=== PATIENT | female | born 2000 | race Caucasian/White ===

== ENCOUNTER 2021-01-28 22:01 | Emergency (ER) | payer BC, OTHER ==
[2021-01-29] MEDS ORDERED: KETOROLAC 30 MG/ML INJ ONE (01:17)
--- NOTE | 2021-01-29 08:05 | RAD REPORT ---
EXAM DESCRIPTION: RAD - Ankle Right 3 View - 01/28/2021 11:55 pm CLINICAL HISTORY: Right ankle pain FINDINGS: No fracture or dislocation is seen.
--- NOTE | 2021-01-29 08:06 | RAD REPORT ---
EXAM DESCRIPTION: RAD - Knee Right 3 View - 01/28/2021 11:55 pm CLINICAL HISTORY: Right knee pain status post injury FINDINGS: No fracture or dislocation is seen.
--- NOTE | 2021-01-29 11:09 | RAD REPORT ---
EXAM DESCRIPTION: CT - Head C Spine Mpr Wo Con - 01/29/2021 6:31 am CLINICAL HISTORY: The patient is 20 years old and is Female; fall with head injury TECHNIQUE: Axial computed tomography images of the head/brain and cervical spine without intravenous contrast. Sagittal and coronal reformatted images were created and reviewed. This CT exam was pe rformed using one or more of the following dose reduction techniques: automated exposure control, a djustment of the mA and/or kV according to patient size, and/or use of iterative reconstruction techn ique. DLP: 1195 mGy*cm COMPARISON: None. FINDINGS: BRAIN: Unremarkable. No hemorrhage. No significant white matter disease. No edema . VENTRICLES: Unremarkable. No ventriculomegaly. SKULL: No acute fracture. SINUSES: Unremarkable as visualized. No acute sinusitis. MASTOID AIR CELLS: Unremarkable as visualized. No mastoid effusion. VERTEBRAE: Unremarkable. No acute fracture. Normal alignment. DISCS/SPINAL CANAL/NEURAL FORAMINA: No acute findings. No spinal canal stenosis. SOFT TISSUES: Unremarkable. IMPRESSION: 1. No acute intracranial abnormality. 2. No acute cervical spine fracture or subluxation. Electronically signed by: Mekhi Wayne DO 01/29/2021 12:27 AM CDT Due to temporary technical issues with the PACS/Fluency reporting system, reports are being signed by the in house radiologist without review as a courtesy to ensure prompt reporting. The interpreting r adiologist is fully responsible for the content of the report.
--- NOTE | 2021-01-29 12:11 | ER ---
Nurse's Notes [facility] Name: Ester Travis Age: 20 yrs Sex: Female : 2000 Arrival Date: 01/28/2021 Time: 22:06 Bed 6 Private MD: Diagnosis: Sprain of ankle;Sprain of foot Presentation: 01/28 22:20 Chief complaint: Patient states: GLF, rt foot/leg pain and numbness, and headache. sj1 reports hitting back of head, denies loc. Coronavirus screen: Vaccine status: Patient reports being unvaccinated. Ebola Screen: No symptoms or risks identified at this time. Initial Sepsis Screen: Does the patient meet any 2 criteria? No. Patient's initial sepsis screen is negative. Does the patient have a suspected source of infection? No. Patient's initial sepsis screen is negative. Risk Assessment: Do you want to hurt yourself or someone else? Patient reports no desire to harm self or others. Onset of symptoms was January 28, 2021. 22:20 Method Of Arrival: Wheelchair sj1 22:20 Acuity: HEIDI 3 sj1 01/29 01:29 Note Acre wrap applied to right ankle. MSP's intact. No swelling noted. Slight bruising df1 to lateral side of right foot. Triage Assessment: 01/28 22:23 General: Appears in no apparent distress. Behavior is calm, cooperative, appropriate sj1 for age. Pain: Complains of pain in rt ankle/leg. Musculoskeletal: Reports pain in rt foot/leg. Injury Description: fall. 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 - Social history:: Smoking status: Reported history of juuling and/or vaping. Patient uses alcohol, only on a social basis. Patient/guardian denies using street drugs. Screenin:27 Abuse screen: Denies threats or abuse. Denies injuries from another. Nutritional sj1 screening: No deficits noted. Tuberculosis screening: No symptoms or risk factors identified. Fall Risk Fall in past 12 months (25 points). Assessment: 01/29 00:57 General: Appears in no apparent distress. Behavior is calm, cooperative. Pain: df1 Complains of pain in forehead Pain does not radiate. Pain currently is 5 out of 10 on a pain scale. 00:57 Pain: Complains of pain in anterior aspect of right ankle and dorsum of right foot Pain df1 currently is 5 out of 10 on a pain scale. Neuro: No deficits noted. Cardiovascular: No deficits noted. Respiratory: No deficits noted. GI: No deficits noted. : No deficits noted. Vital Signs: 01/28 22:20 BP 122 / 83 LA Sitting (auto/reg); Pulse 99; Resp 18 S; Temp 98.7(O); Pulse Ox 97% on sj1 R/A; Weight 74.84 kg (R); Height 5 ft. 0 in. (152.40 cm) (R); Pain 7/10; 23:45 BP 120 / 74; Pulse 89; Resp 18; Pulse Ox 99% on R/A; df1 22:20 Body Mass Index 32.22 (74.84 kg, 152.40 cm) 1 ED Course: 22:06 Patient arrived in ED. bp1 22:23 Triage completed. sj1 22:23 Arm band placed on. sj1 22:27 Patient has correct armband on for positive identification. sj1 22:29 Dirk Gooden PA is PHCP. [facility] 22:29 Ladarius Bourne MD is Attending Physician. [facility] 23:02 Dorina Wright is Primary Nurse. df1 01/29 01:05 Boris Menjivar DPM is Referral Physician. jm 01:27 No provider procedures requiring assistance completed. df1 01:28 Colin wrap to right ankle. df1 01:32 Patient did not have IV access during this emergency room visit. df1 Administered Medications: 00:56 Drug: Ketorolac 30 mg Route: IM; Site: right gluteus; df1 Outcome: 01:05 Discharge ordered by . [facility] 01:30 Discharged to home with crutches. df1 01:30 Condition: stable 01:30 Condition: stable 01:30 Discharge instructions given to patient, Instructed on discharge instructions, follow up and referral plans. medication usage, Demonstrated understanding of instructions, follow-up care, medications, crutch walking, Prescriptions given X 2. 01:32 Patient left the ED. df1 Signatures: Dirk Gooden PA PA jmm Paniauga, Brittany bp1 Furlich, Dawn df1 Gail Garcia RN RN sj1 Corrections: (The following items were deleted from the chart) 01/28 22:26 22:23 Allergies: No Known Allergies; sj1 sj1 22:27 22:20 Chief complaint: Patient states: GLF, rt foot/leg pain, and headache. reports sj1 hitting back of head, denies loc. sj1
--- NOTE | 2021-01-29 12:11 | EDPHYS ---
Physician Documentation [facility] Name: Ester Travis Age: 20 yrs Sex: Female : 2000 Arrival Date: 01/28/2021 Time: 22:06 Bed 6 Private MD: ED Physician Ladarius Bourne HPI: 01/28 22:39 This 20 yrs old Female presents to ER via Wheelchair with complaints of Leg jmm Injury. 22:39 The patient presents with an injury, pain. Onset: The symptoms/episode began/occurred jmm acutely. Modifying factors: The symptoms are alleviated by nothing. the symptoms are aggravated by weight bearing. This is a 20-year-old female that presents emerged department with complaints of slipping and falling on vinyl and unsure whether she hit her head. Patient states she is unable to put weight on her right leg pain is mainly at her ankle which radiates up to her knee. Patient unsure on LOC. 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 - Social history:: Smoking status: Reported history of juuling and/or vaping. Patient uses alcohol, only on a social basis. Patient/guardian denies using street drugs. ROS: 01/29 01:04 Constitutional: Negative for fever, chills, and weight loss, Cardiovascular: Negative jmm for chest pain, palpitations, and edema, Respiratory: Negative for shortness of breath, cough, wheezing, and pleuritic chest pain. MS/extremity: Positive for injury or acute deformity, pain. Neuro: Positive for headache. All other systems are negative. Exam: 01:04 Constitutional: This is a well developed, well nourished patient who is awake, alert, jmm and in no acute distress. Head/Face: atraumatic. Eyes: EOMI, no conjunctival erythema appreciated ENT: Moist Mucus Membranes Neck: Trachea midline, Supple Chest/axilla: Normal chest wall appearance and motion. Cardiovascular: Regular rate and rhythm. No edema appreciated Respiratory: Normal respirations, no respiratory distress appreciated Abdomen/GI: Non distended, soft Back: Normal ROM Skin: General appearance color normal 01:04 Musculoskeletal/extremity: right lateral and medial malleolus ttp, compartments are soft, NVI, . 01:04 Skin: Appearance: Color: normal in color. 01:04 Neuro: Orientation: is normal, Mentation: is normal, Memory: is normal. 01:04 Psych: Behavior/mood is pleasant, cooperative. Vital Signs: 01/28 22:20 BP 122 / 83 LA Sitting (auto/reg); Pulse 99; Resp 18 S; Temp 98.7(O); Pulse Ox 97% on sj1 R/A; Weight 74.84 kg (R); Height 5 ft. 0 in. (152.40 cm) (R); Pain 7/10; 23:45 BP 120 / 74; Pulse 89; Resp 18; Pulse Ox 99% on R/A; df1 22:20 Body Mass Index 32.22 (74.84 kg, 152.40 cm) [facility] MDM: 22:39 Patient medically screened. [facility] 01/29 01:05 Data reviewed: vital signs, nurses notes. Counseling: I had a detailed discussion with alicia the patient and/or guardian regarding: the historical points, exam findings, and any diagnostic results supporting the discharge/admit diagnosis, radiology results, the need for outpatient follow up, to return to the emergency department if symptoms worsen or persist or if there are any questions or concerns that arise at home. 01/28 22:41 Order name: CT Head C Spine [facility] 01/29 00:52 Order name: Colin wrap-joint; Complete Time: 00:56 [facility] 01/29 00:52 Order name: Crutches; Complete Time: 00:56 [facility] Administered Medications: 00:56 Drug: Ketorolac 30 mg Route: IM; Site: right gluteus; df1 Disposition: 08:46 Co-signature as Attending Physician, Ladarius Bourne MD I agree with the assessment and jason plan of care. Disposition Summary: 01/29/21 01:05 Discharge Ordered Location: Home [facility] Condition: Stable [facility] Diagnosis - Sprain of ankle jmm - Sprain of foot [facility] Followup: [facility] - With: Boris Menjivar DPM - When: 2 - 3 days - Reason: Recheck today's complaints, Continuance of care, Re-evaluation by your physician Discharge Instructions: - Discharge Summary Sheet jmm - Ankle Sprain jmm - Foot Sprain jm Forms: - School release form bd - Medication Reconciliation Form jmm - Thank You Letter jmm - Antibiotic Education jmm - Prescription Opioid Use jmm - Work release form bd Prescriptions: - Ibuprofen 800 mg Oral Tablet - take 1 tablet by ORAL route every 8 hours As needed take with food; 30 tablet; jmm Refills: 0, Product Selection Permitted - orphenadrine citrate 100 mg Oral Tablet Sustained Release - take 1 tablet by ORAL route 2 times per day As needed; 20 tablet; Refills: 0, marilu Product Selection Permitted Signatures: Dispatcher [employer] Ladarius Stringer MD MD cha Mickail, Joel, PA PA jmm Furlich, Dawn df1 Gail Garcia RN RN sj1 Corrections: (The following items were deleted from the chart) 01/28 22:26 22:23 Allergies: No Known Allergies; sj1 sj1
[2021-01-29 12:38] VITALS: TEMP 98.7
[2021-01-29 12:39] VITALS: BP 120/74; O2SAT 99
== END 2021-01-29 01:32 | disposition home or self-care (01) ==
LOC: ER 22:01
DX: S93.401A Sprain of unspecified ligament of right ankle, initial encounter (principal); S93.601A Unspecified sprain of right foot, initial encounter; Z88.5 Allergy status to narcotic agent
CPT/HCPCS: 70450; 72125; 96372; 99283

== ENCOUNTER 2023-08-16 03:49 | Emergency (ER) | payer BC ==
--- OUTSIDE RECORDS SUMMARY | 2023-08-16 03:53 | XMS REPORT | Continuity of Care Document ---
Author Name Unknown Address [address] [facility] [address] [place] [address] [facility] thconnect Address [address] [facility]. [address] [place] [address] Care Team Providers Care Management Department Chair Name Role Phone Georgia Parra MD Primary Care Physici an YARELI BROWN Attending Clinician Unavailable Doctor Unassigned, [place] Attending Clinician U Evelyn Garcia Attending Clinician [phone] Unknown, Attending Attending Clinician Unavailab EVELYN Shaikh Attending Clinician Unavailable Georgia Parra MD Attending Clinician Lab, Ray[facility] - Db Attending Clinician Unavailable GEORGIA PARRA Attending Clinician Annette vailable KIMBERLEE SANTOYO Attending Clinician Unavailable SHERRIE CHADWICK Attending Clinician Unavail able Kimberlee Shah Attending Clinician [phone] SUGAR KRAMER Attending Clinician Unavailable Sugar Kramer PA-C Attending Clinician [phone] Benedicto Zapien MD Attending Clinician [phone] BENEDICTO ZAPIEN Attending Clinician Unavailable UNKNOWN, ATTENDING Attending Clinician Unavailab HENNY Steve Attending Clinician Unavailable Sherrie Palomino Attending Clinician + Charissa Kelly Attending Clinician [phone] Sulaiman RN, Jacqueline T Attending Clinician Unavailab le Only, [facility] Garrison Test Attending Clinician Unavailvesna sera Kavita M[employer] HOUSE LOADER, Henny Attending Clinician [phone] Provider, [facility] Attending Clinician Unavailable Luna Franklin MD Attending Clinician [phone] LUAN FRANKLIN Attending Clinician Unavail Violet Vallejo RN Attending Clinician Unavaila Jose Barnes DO Attending Clinician [phone] Payers Payer Name Policy Type Policy Number Effective Date Expirati on Date Source Problems Condition Name Condition Details Condition Category Status Onset Date Resolution Date Last Treatment Date Treating Clinician Comments Source Obesity (BMI 30-39.9) Obesity (BMI 30-39.9) Disease Active 07-21 00:00: 00 [facility] Acne vulgaris Acne vulgaris Disease Active 07-06 00:00: 00 [facility] Mixed anxiety and depressive disorder Mixed anxiety and depressive disorder Disease Active 12-21 00:00: 00 [facility] Other general counseling and advice for contracept jermaine management Other general counseling and advice for contracept jermaine management Disease Active 04-13 00:00: 00 [facility] Hypothyroi dism Hypothyroi dism Disease Active 04-13 00:00: 00 [facility] Vaginal discharge Vaginal discharge Disease Active 04-13 00:00: 00 [facility] Pain pelvic Pain pelvic Disease Active 04-13 00:00: 00 [facility] Randa' s thyroiditi s Randa' s thyroiditi s Disease Active 06-14 00:00: 00 [facility] Goiter Goiter Disease Active 06-14 00:00: 00 [facility] Allergies, Adverse Reactions, Alerts Allergy Name Allergy Type Status Severity Reaction(s) Onset Date Inactive Date Treating Clinician Comments Source CODEINE DRUG INGREDI Active Med Rash 04-13 00:00: 00 [facility] Codeine Propensi ty to adverse reaction s Active Rash 04-13 00:00: 00 Does itchDoes itchDoes itchDoes itchDoes itchDoes itchDoes itchDoes itch [facility] Codeine Drug Allergy Active Swelling 04-13 00:00: 00 Topical Codeine cream-is able to take oral form [facility] NO KNOWN ALLERGIE S Drug Class Active [facility] Social History Social Habit Start Date Stop Date Quantity Comments Source Gender [facility] History of tobacco use Cigarette Smoker [facility] Alcohol intake 2023-07-22 00:00:00 2023-07-22 00:00:00 Current drinker of alcohol (finding) [facility] History of Social function 2023-07-07 00:00:00 2023-07-07 00:00:00 [facility] Cigarettes smoked current (pack per day) - Reported 2023-07-07 00:00:00 2023-07-07 00:00:00 [facility] Cigarette pack-years 2023-07-07 00:00:00 2023-07-07 00:00:00 [facility] Tobacco use and exposure 2023-07-07 00:00:00 2023-07-07 00:00:00 Smokeless tobacco non-user [facility] Alcoholic beverage intake 2023-07-07 00:00:00 2023-07-07 00:00:00 Current drinker of alcohol (finding) [facility] Alcohol Comment 2023-07-07 00:00:00 2023-07-07 00:00:00 Weekends/Social [facility] Exposure to SARS-CoV-2 (event) 2022-07-11 00:00:00 2022-07-21 09:57:00 Not sure [facility] History SDOH Alcohol Binge 2020-04-13 00:00:00 2020-04-13 00:00:00 1 [facility] History SDOH Alcohol Frequency 2020-04-13 00:00:00 2020-04-13 00:00:00 4 [facility] History SDOH Alcohol Std Drinks 2020-04-13 00:00:00 2020-04-13 00:00:00 1 [facility] Sex assigned at 1999 00:00:00 2000 00:00:00 [facility] Smoking Status Start Date Stop Date Source Ex-smoker 2023-07-07 00:00:00 2023[facility]07[facility]07 [facility] Medications Ordered Medication Name Filled Medication Name Start Date Stop Date Current Medication? Ordering Clinician Indication Dosage Frequency Signature (SIG) Comments Components Source methylPREDN ISolone (MEDROL, SWATHI,) 4 mg tablets 08-10 00:00: 00 Yes [id number] Take by mouth SEE-INSTRU CTIONS. follow package directions [facility] promethazin e-dextromet horphan 6.25-15 mg/5 mL syrup 08-10 00:00: 00 08-21 04:59 :00 Yes [id number] 5mL Take 5 mL by mouth 4 (four) times daily for 10 days. [facility] norgestimat e-ethinyl estradioL 0.18/0.215/ 0.25 mg-25 mcg tablet 07-06 10:40: 15 07-06 00:00 :00 No 1{tbl} Take 1 tablet by mouth in the morning. [facility] montelukast 10 mg tablet 07-06 10:40: 09 07-06 00:00 :00 No 10mg Take 1 tablet by mouth in the morning. [facility] doxycycline hyclate 100 mg capsule 07-06 10:40: 06 07-06 00:00 :00 No 100mg Take 1 capsule by mouth in the morning. [facility] Clindamycin Phosphate (CLINDACIN) 1 % Foam 07-06 00:00: 00 Yes [id number] Apply to area(s) at bedtime. [facility] tretinoin (RETIN-A) 0.01 % gel 07-06 00:00: 00 Yes [id number] Apply to area(s) at bedtime. [facility] dexamethaso ne (DECADRON) injection 10 mg 2023-1 2-16 20:54: 00 03-21 20:58 :00 No [id number] 10mg [facility] nirmatrelvi r-ritonavir (PAXLOVID) 300 mg (150 mg x 2)-100 mg tablet 9-10 00:00: 00 Yes [id number] 3{tbl} Take 3 tablets by mouth in the morning and 3 tablets in the evening. [facility] loratadine (CLARITIN ORAL) 07-21 10:25: 01 07-21 00:00 :00 No Take by mouth. [facility] ondansetron 4 mg disintegrat ing tablet 07-21 00:00: 00 Yes [id number] 4mg Take 1 tablet by mouth every 8 (eight) hours as needed for Nausea and Vomiting (N/V). [facility] bromphenira mine-pseudo ephedrine-D M (BROMFED DM) 2-30-10 mg/5 mL syrup 07-21 00:00: 00 Yes [id number] 10mL Take 10 mL by mouth 4 (four) times daily as needed for Congestion /Allergies . [facility] amoxicillin -clavulanat e (AUGMENTIN) 875-125 mg per tablet 07-21 00:00: 00 07-29 04:59 :00 No [id number] 1{tbl} Take 1 tablet by mouth in the morning and 1 tablet in the evening. Do all this for 7 days. [facility] ibuprofen 600 mg tablet 05-05 00:00: 00 07-21 00:00 :00 No [id number] 600mg Take 1 tablet by mouth every 6 (six) hours as needed for Pain (scale 4-6) or Pain (scale 1-3). [facility] ondansetron 4 mg disintegrat ing tablet 05-05 00:00: 00 07-21 00:00 :00 No [id number] 4mg Take 1 tablet by mouth every 8 (eight) hours as needed for Nausea and Vomiting (N/V). [facility] benzonatate 100 mg capsule 05-05 00:00: 00 07-21 00:00 :00 No [id number] 200mg Take 2 capsules by mouth every 8 (eight) hours as needed for Cough. [facility] ketorolac (TORADOL) injection 30 mg 04-15 23:15: 00 04-15 22:14 :00 No [id number] 30mg [facility] ondansetron 4 mg disintegrat ing tablet 04-15 00:00: 00 05-05 00:00 :00 No [id number] 4mg Take 1 tablet by mouth every 8 (eight) hours as needed for Nausea and Vomiting (N/V). [facility] benzonatate 100 mg capsule 04-15 00:00: 00 05-05 00:00 :00 No [id number] 200mg Take 2 capsules by mouth every 8 (eight) hours as needed for Cough. [facility] bromphenira mine-pseudo ephedrine-D M (BROMFED DM) 2-30-10 mg/5 mL syrup 04-15 00:00: 00 05-05 00:00 :00 No [id number] 5mL Take 5 mL by mouth 4 (four) times daily as needed for Congestion /Allergies . [facility] fluticasone propionate 50 mcg/actuati on nasal spray 2020-04 00:00: 00 Yes [facility] albuterol 90 mcg/actuati on inhaler 2020-04 00:00: 00 Yes [facility] cefdinir 300 mg capsule 2020-04 00:00: 00 05-05 00:00 :00 No [facility] benzonatate 100 mg capsule 2020-04 00:00: 00 04-15 00:00 :00 No [facility] orphenadrin e 100 mg SR tablet 2020-04 00:00: 00 Yes [facility] ibuprofen 800 mg tablet 2020-04 00:00: 04-15 00:00 :00 No [facility] methylPREDN ISolone acetate (DEPO-MEDRO L) injection 40 mg 2020-04 18:00: 00 01-27 16:58 :00 No [id number] [facility] bromphenira mine-pseudo ephedrine-D M (BROMFED DM) 2-30-10 mg/5 mL syrup 2020-04 00:00: 00 04-15 00:00 :00 No [id number] 5mL Take 5 mL by mouth 3 (three) times daily as needed for Congestion /Allergies or Cough. [facility] FLUoxetine 10 mg capsule 2020-04 00:00: 00 01-22 04:59 :00 No 10mg Take 10 mg by mouth. [facility] hydrOXYzine 25 mg tablet 12-21 00:00: 00 07-21 00:00 :00 No 25mg Take 25 mg by mouth. [facility] NORGESTIMAT E-ETHINYL ESTRADIOL 0.18/0.215/ 0.25 mg-35 mcg (28) tablet 05-07 00:00: 00 07-21 00:00 :00 No [id number] TAKE 1 TABLET BY MOUTH EVERY DAY [facility] fluconazole (DIFLUCAN) 150 mg tablet 04-18 00:00: 00 04-19 05:59 :00 No [id number] 150mg Take 1 tablet by mouth once now for 1 dose. [facility] levothyroxi ne 75 mcg tablet 04-13 19:23: 03 Yes 75ug Take 75 mcg by mouth every morning. [facility] loratadine (CLARITIN ORAL) 04-13 19:23: 03 Yes Take by mouth. [facility] levothyroxi ne 75 mcg tablet 04-13 13:23: 03 Yes 75ug Take 75 mcg by mouth every morning. [facility] loratadine (CLARITIN ORAL) 04-13 13:23: 03 Yes Take by mouth. [facility] norgestimat e-ethinyl estradioL 0.18/0.215/ 0.25 mg-35 mcg (28) tablet 04-13 00:00: 00 05-07 00:00 :00 No [id number] 1{tbl} Take 1 tablet by mouth daily. [facility] norgestimat e-ethinyl estradioL 0.18/0.215/ 0.25 mg-35 mcg (28) tablet 2019-04 00:00: 00 04-13 00:00 :00 No 1{tbl} Take 1 tablet by mouth daily. [facility] Immunizations Ordered Immunization Name Filled Immunization Name Date Status Comments Source Varicella (varivax)(chicken pox) Unknown Completed [facility] Varicella (varivax)(chicken pox) [facility] TDAP Unknown Completed [facility] IPV Unknown Completed [facility] IPV Unknown Completed [facility] IPV Unknown Completed [facility] IPV Unknown Completed [facility] Pneumococcal 7 Conjugate, PCV7 (Prevnar7) Unknown Completed [facility] Pneumococcal 7 Conjugate, PCV7 (Prevnar7) Unknown Completed [facility] Pneumococcal 13 Conjugate, PCV13 (Prevnar 13) Unknown Completed [facility] MMR Unknown Completed [facility] MMR Unknown Completed [facility] MMR Unknown Completed [facility] Meningococcal Polysaccharide (groups A, C, Y and W-135) conjugate vaccine (MCV4P) Unknown Completed [facility] Meningococcal Polysaccharide (groups A, C, Y and W-135) conjugate vaccine (MCV4P) Unknown Completed [facility] HIB 4 Dose Schedule Unknown Completed [facility] HIB 4 Dose Schedule Unknown Completed [facility] HIB 4 Dose Schedule Unknown Completed [facility] HIB 4 Dose Schedule Unknown Completed [facility] Hep B, Adol or Pedi Dosage Unknown Completed [facility] Hep B, Adol or Pedi Dosage Unknown Completed [facility] Hep B, Adol or Pedi Dosage Unknown Completed [facility] HEPA,NOS Unknown Completed [facility] HEPA,NOS Unknown Completed [facility] Influenza Virus Vaccine Recomb Quad IM, Preserv and ABX Free 18-64 YRS Unknown Completed [facility] DTAP Unknown Completed [facility] DTAP Unknown Completed [facility] DTAP Unknown Completed [facility] DTAP Unknown Completed [facility] DTAP Unknown Completed [facility] Varicella (varivax)(chicken pox) Unknown [facility] Varicella (varivax)(chicken pox) Unknown Completed [facility] TDAP Unknown Completed [facility] IPV Unknown Completed [facility] IPV Unknown Completed [facility] IPV Unknown Completed [facility] IPV Unknown Completed [facility] Pneumococcal 7 Conjugate, PCV7 (Prevnar7) Unknown Completed [facility] Pneumococcal 7 Conjugate, PCV7 (Prevnar7) Unknown Completed [facility] Pneumococcal 13 Conjugate, PCV13 (Prevnar 13) Unknown Completed [facility] MMR Unknown Completed [facility] MMR Unknown Completed [facility] MMR Unknown Completed [facility] Meningococcal Polysaccharide (groups A, C, Y and W-135) conjugate vaccine (MCV4P) Unknown Completed [facility] Meningococcal Polysaccharide (groups A, C, Y and W-135) conjugate vaccine (MCV4P) Unknown Completed [facility] HIB 4 Dose Schedule Unknown Completed [facility] HIB 4 Dose Schedule Unknown Completed [facility] HIB 4 Dose Schedule Unknown Completed [facility] HIB 4 Dose Schedule Unknown Completed [facility] Hep B, Adol or Pedi Dosage Unknown Completed [facility] Hep B, Adol or Pedi Dosage Unknown Completed [facility] Hep B, Adol or Pedi Dosage Unknown Completed [facility] HEPA,NOS Unknown Completed [facility] HEPA,NOS Unknown Completed [facility] Influenza Virus Vaccine Recomb Quad IM, Preserv and ABX Free 18-64 YRS Unknown Completed [facility] DTAP Unknown Completed [facility] DTAP Unknown Completed [facility] DTAP Unknown Completed [facility] DTAP Unknown Completed [facility] DTAP Unknown Completed [facility] Varicella (varivax)(chicken pox) Unknown Completed [facility] Varicella (varivax)(chicken pox) Unknown [facility] TDAP Unknown Completed [facility] IPV Unknown Completed [facility] IPV Unknown Completed [facility] IPV Unknown Completed [facility] IPV Unknown Completed [facility] Pneumococcal 7 Conjugate, PCV7 (Prevnar7) Unknown Completed [facility] Pneumococcal 7 Conjugate, PCV7 (Prevnar7) Unknown Completed [facility] Pneumococcal 13 Conjugate, PCV13 (Prevnar 13) Unknown Completed [facility] MMR Unknown Completed [facility] MMR Unknown Completed [facility] MMR Unknown Completed [facility] Meningococcal Polysaccharide (groups A, C, Y and W-135) conjugate vaccine (MCV4P) Unknown Completed [facility] Meningococcal Polysaccharide (groups A, C, Y and W-135) conjugate vaccine (MCV4P) Unknown Completed [facility] HIB 4 Dose Schedule Unknown Completed [facility] HIB 4 Dose Schedule Unknown Completed [facility] HIB 4 Dose Schedule Unknown Completed [facility] HIB 4 Dose Schedule Unknown Completed [facility] Hep B, Adol or Pedi Dosage Unknown Completed [facility] Hep B, Adol or Pedi Dosage Unknown Completed [facility] Hep B, Adol or Pedi Dosage Unknown Completed [facility] HEPA,NOS Unknown Completed [facility] HEPA,NOS Unknown Completed [facility] Influenza Virus Vaccine Recomb Quad IM, Preserv and ABX Free 18-64 YRS Unknown Completed [facility] DTAP Unknown Completed [facility] DTAP Unknown Completed [facility] DTAP Unknown Completed [facility] DTAP Unknown Completed [facility] DTAP Unknown Completed [facility] Varicella (varivax)(chicken pox) Unknown Completed [facility] Varicella (varivax)(chicken pox) Unknown Completed [facility] TDAP Unknown Completed [facility] IPV Unknown Completed [facility] IPV Unknown Completed [facility] IPV Unknown Completed [facility] IPV Unknown Completed [facility] Pneumococcal 7 Conjugate, PCV7 (Prevnar7) Unknown Completed [facility] Pneumococcal 7 Conjugate, PCV7 (Prevnar7) Unknown Completed [facility] Pneumococcal 13 Conjugate, PCV13 (Prevnar 13) Unknown Completed [facility] MMR Unknown Completed [facility] MMR Unknown Completed [facility] MMR Unknown Completed [facility] Meningococcal Polysaccharide (groups A, C, Y and W-135) conjugate vaccine (MCV4P) Unknown Completed [facility] Meningococcal Polysaccharide (groups A, C, Y and W-135) conjugate vaccine (MCV4P) Unknown Completed [facility] HIB 4 Dose Schedule Unknown Completed [facility] HIB 4 Dose Schedule Unknown Completed [facility] HIB 4 Dose Schedule Unknown Completed [facility] HIB 4 Dose Schedule Unknown Completed [facility] Hep B, Adol or Pedi Dosage Unknown Completed [facility] Hep B, Adol or Pedi Dosage Unknown Completed [facility] Hep B, Adol or Pedi Dosage Unknown Completed [facility] HEPA,NOS Unknown Completed [facility] HEPA,NOS Unknown Completed [facility] Influenza Virus Vaccine Recomb Quad IM, Preserv and ABX Free 18-64 YRS Unknown Completed [facility] DTAP Unknown Completed [facility] DTAP Unknown Completed [facility] DTAP Unknown Completed [facility] DTAP Unknown Completed [facility] DTAP Unknown Completed [facility] Varicella (varivax)(chicken pox) Unknown Completed [facility] Varicella (varivax)(chicken pox) Unknown Completed [facility] TDAP Unknown Completed [facility] IPV Unknown Completed [facility] IPV Unknown Completed [facility] IPV Unknown Completed [facility] IPV Unknown Completed [facility] Pneumococcal 7 Conjugate, PCV7 (Prevnar7) Unknown Completed [facility] Pneumococcal 7 Conjugate, PCV7 (Prevnar7) Unknown Completed [facility] Pneumococcal 13 Conjugate, PCV13 (Prevnar 13) Unknown Completed [facility] MMR Unknown Completed [facility] MMR Unknown Completed [facility] MMR Unknown Completed [facility] Meningococcal Polysaccharide (groups A, C, Y and W-135) conjugate vaccine (MCV4P) Unknown Completed [facility] Meningococcal Polysaccharide (groups A, C, Y and W-135) conjugate vaccine (MCV4P) Unknown Completed [facility] HIB 4 Dose Schedule Unknown Completed [facility] HIB 4 Dose Schedule Unknown Completed [facility] HIB 4 Dose Schedule Unknown Completed [facility] HIB 4 Dose Schedule Unknown Completed [facility] Hep B, Adol or Pedi Dosage Unknown Completed [facility] Hep B, Adol or Pedi Dosage Unknown Completed [facility] Hep B, Adol or Pedi Dosage Unknown Completed [facility] HEPA,NOS Unknown Completed [facility] HEPA,NOS Unknown Completed [facility] Influenza Virus Vaccine Recomb Quad IM, Preserv and ABX Free 18-64 YRS Unknown Completed [facility] DTAP Unknown Completed [facility] DTAP Unknown Completed [facility] DTAP Unknown Completed [facility] DTAP Unknown Completed [facility] DTAP Unknown Completed [facility] Varicella (varivax)(chicken pox) Unknown Completed [facility] Varicella (varivax)(chicken pox) Unknown Completed [facility] TDAP Unknown Completed [facility] IPV Unknown Completed [facility] IPV Unknown Completed [facility] IPV Unknown Completed [facility] IPV Unknown Completed [facility] Pneumococcal 7 Conjugate, PCV7 (Prevnar7) Unknown Completed [facility] Pneumococcal 7 Conjugate, PCV7 (Prevnar7) Unknown Completed [facility] Pneumococcal 13 Conjugate, PCV13 (Prevnar 13) Unknown Completed [facility] MMR Unknown Completed [facility] MMR Unknown Completed [facility] MMR Unknown Completed [facility] Meningococcal Polysaccharide (groups A, C, Y and W-135) conjugate vaccine (MCV4P) Unknown Completed [facility] Meningococcal Polysaccharide (groups A, C, Y and W-135) conjugate vaccine (MCV4P) Unknown Completed [facility] HIB 4 Dose Schedule Unknown Completed [facility] HIB 4 Dose Schedule Unknown Completed [facility] HIB 4 Dose Schedule Unknown Completed [facility] HIB 4 Dose Schedule Unknown Completed [facility] Hep B, Adol or Pedi Dosage Unknown Completed [facility] Hep B, Adol or Pedi Dosage Unknown Completed [facility] Hep B, Adol or Pedi Dosage Unknown Completed [facility] HEPA,NOS Unknown Completed [facility] HEPA,NOS Unknown Completed [facility] Influenza Virus Vaccine Recomb Quad IM, Preserv and ABX Free 18-64 YRS Unknown Completed [facility] DTAP Unknown Completed [facility] DTAP Unknown Completed [facility] DTAP Unknown Completed [facility] DTAP Unknown Completed [facility] DTAP Unknown Completed [facility] Varicella (varivax)(chicken pox) Unknown Completed [facility] Varicella (varivax)(chicken pox) Unknown Completed [facility] TDAP Unknown Completed [facility] IPV Unknown Completed [facility] IPV Unknown Completed [facility] IPV Unknown Completed [facility] IPV Unknown Completed [facility] Pneumococcal 7 Conjugate, PCV7 (Prevnar7) Unknown Completed [facility] Pneumococcal 7 Conjugate, PCV7 (Prevnar7) Unknown Completed [facility] Pneumococcal 13 Conjugate, PCV13 (Prevnar 13) Unknown Completed [facility] MMR Unknown Completed [facility] MMR Unknown Completed [facility] MMR Unknown Completed [facility] Meningococcal Polysaccharide (groups A, C, Y and W-135) conjugate vaccine (MCV4P) Unknown Completed [facility] Meningococcal Polysaccharide (groups A, C, Y and W-135) conjugate vaccine (MCV4P) Unknown Completed [facility] HIB 4 Dose Schedule Unknown Completed [facility] HIB 4 Dose Schedule Unknown Completed [facility] HIB 4 Dose Schedule Unknown Completed [facility] HIB 4 Dose Schedule Unknown Completed [facility] Hep B, Adol or Pedi Dosage Unknown Completed [facility] Hep B, Adol or Pedi Dosage Unknown Completed [facility] Hep B, Adol or Pedi Dosage Unknown Completed [facility] HEPA,NOS Unknown Completed [facility] HEPA,NOS Unknown Completed [facility] Influenza Virus Vaccine Recomb Quad IM, Preserv and ABX Free 18-64 YRS Unknown Completed [facility] DTAP Unknown Completed [facility] DTAP Unknown Completed [facility] DTAP Unknown Completed [facility] DTAP Unknown Completed [facility] DTAP Unknown Completed [facility] Varicella (varivax)(chicken pox) Unknown Completed [facility] Varicella (varivax)(chicken pox) Unknown Completed [facility] TDAP Unknown Completed [facility] IPV Unknown Completed [facility] IPV Unknown Completed [facility] IPV Unknown Completed [facility] IPV Unknown Completed [facility] Pneumococcal 7 Conjugate, PCV7 (Prevnar7) Unknown Completed [facility] Pneumococcal 7 Conjugate, PCV7 (Prevnar7) Unknown Completed [facility] Pneumococcal 13 Conjugate, PCV13 (Prevnar 13) Unknown Completed [facility] MMR Unknown Completed [facility] MMR Unknown Completed [facility] MMR Unknown Completed [facility] Meningococcal Polysaccharide (groups A, C, Y and W-135) conjugate vaccine (MCV4P) Unknown Completed [facility] Meningococcal Polysaccharide (groups A, C, Y and W-135) conjugate vaccine (MCV4P) Unknown Completed [facility] HIB 4 Dose Schedule Unknown Completed [facility] HIB 4 Dose Schedule Unknown Completed [facility] HIB 4 Dose Schedule Unknown Completed [facility] HIB 4 Dose Schedule Unknown Completed [facility] Hep B, Adol or Pedi Dosage Unknown Completed [facility] Hep B, Adol or Pedi Dosage Unknown Completed [facility] Hep B, Adol or Pedi Dosage Unknown Completed [facility] HEPA,NOS Unknown Completed [facility] HEPA,NOS Unknown Completed [facility] Influenza Virus Vaccine Recomb Quad IM, Preserv and ABX Free 18-64 YRS Unknown Completed [facility] DTAP Unknown Completed [facility] DTAP Unknown Completed [facility] DTAP Unknown Completed [facility] DTAP Unknown Completed [facility] DTAP Unknown Completed [facility] Vital Signs Vital Name Observation Time Observation Value Comments S ource Systolic blood pressure 2023-08-11 18:39:00 117 mm[Hg] [facility] Diastolic blood pressure 2023-08-11 18:39:00 87 mm[Hg] [facility] Heart rate 2023-08-11 18:39:00 85 /min [facility] Body temperature 2023-08-11 18:39:00 37.17 Malgorzata [facility] Respiratory rate 2023-08-11 18:39:00 16 /min [facility] Body height 2023-08-11 18:39:00 152.4 cm [facility] Body weight 2023-08-11 18:39:00 77.565 kg [facility] BMI 2023-08-11 18:39:00 33.40 kg/m2 [facility] Oxygen saturation in Arterial blood by Pulse oximetry 2023-08-11 18:39:00 99 /min [facility] Systolic blood pressure 2023-07-22 19:18:00 117 mm[Hg] [facility] Diastolic blood pressure 2023-07-22 19:18:00 80 mm[Hg] [facility] Heart rate 2023-07-22 19:18:00 85 /min [facility] Body temperature 2023-07-22 19:18:00 37.06 Malgorzata [facility] Respiratory rate 2023-07-22 19:18:00 18 /min [facility] Body height 2023-07-22 19:18:00 152.4 cm [facility] Body weight 2023-07-22 19:18:00 79.017 kg [facility] BMI 2023-07-22 19:18:00 34.02 kg/m2 [facility] Systolic blood pressure 2023-07-07 15:33:00 119 mm[Hg] [facility] Diastolic blood pressure 2023-07-07 15:33:00 86 mm[Hg] [facility] Heart rate 2023-07-07 15:33:00 94 /min [facility] Respiratory rate 2023-07-07 15:33:00 18 /min [facility] Body height 2023-07-07 15:33:00 152.4 cm [facility] Body weight 2023-07-07 15:33:00 77.565 kg [facility] BMI 2023-07-07 15:33:00 33.40 kg/m2 [facility] Oxygen saturation in Arterial blood by Pulse oximetry 2023-07-07 15:33:00 99 /min [facility] Systolic blood pressure 2023-03-21 20:22:00 119 mm[Hg] [facility] Diastolic blood pressure 2023-03-21 20:22:00 86 mm[Hg] [facility] Heart rate 2023-03-21 20:22:00 92 /min [facility] Body temperature 2023-03-21 20:22:00 37.06 Malgorzata [facility] Body weight 2023-03-21 20:22:00 [facility]751 [facility] BMI 2023-03-21 20:22:00 32.61 kg/m2 [facility] Oxygen saturation in Arterial blood by Pulse oximetry 2023-03-21 20:22:00 100 /min [facility] Systolic blood pressure 2022-12-14 18:22:00 124 mm[Hg] [facility] Diastolic blood pressure 2022-12-14 18:22:00 87 mm[Hg] [facility] Heart rate 2022-12-14 18:22:00 77 /min [facility] Body temperature 2022-12-14 18:22:00 37.17 Malgorzata [facility] Respiratory rate 2022-12-14 18:22:00 14 /min [facility] Body height 2022-12-14 18:22:00 152.4 cm [facility] Body weight 2022-12-14 18:22:00 77.565 kg [facility] BMI 2022-12-14 18:22:00 33.40 kg/m2 [facility] Oxygen saturation in Arterial blood by Pulse oximetry 2022-12-14 18:22:00 100 /min [facility] Systolic blood pressure 2022-07-21 15:13:00 120 mm[Hg] [facility] Diastolic blood pressure 2022-07-21 15:13:00 90 mm[Hg] [facility] Heart rate 2022-07-21 15:13:00 87 /min [facility] Body temperature 2022-07-21 15:13:00 37.56 Malgorzata [facility] Respiratory rate 2022-07-21 15:13:00 16 /min [facility] Body height 2022-07-21 15:13:00 152.4 cm [facility] Body weight 2022-07-21 15:13:00 78.744 kg [facility] BMI 2022-07-21 15:13:00 33.90 kg/m2 [facility] Oxygen saturation in Arterial blood by Pulse oximetry 2022-07-21 15:13:00 99 /min [facility] Systolic blood pressure 2022-05-05 18:09:00 112 mm[Hg] [facility] Diastolic blood pressure 2022-05-05 18:09:00 77 mm[Hg] [facility] Heart rate 2022-05-05 18:09:00 97 /min [facility] Body temperature 2022-05-05 18:09:00 38.17 Malgorzata [facility] Respiratory rate 2022-05-05 18:09:00 16 /min [facility] Body height 2022-05-05 18:09:00 152.4 cm [facility] Body weight 2022-05-05 18:09:00 76.856 kg [facility] BMI 2022-05-05 18:09:00 33.09 kg/m2 [facility] Oxygen saturation in Arterial blood by Pulse oximetry 2022-05-05 18:09:00 97 /min [facility] Systolic blood pressure 2021-04-15 21:55:00 123 mm[Hg] [facility] Diastolic blood pressure 2021-04-15 21:55:00 87 mm[Hg] [facility] Heart rate 2021-04-15 21:55:00 85 /min [facility] Body temperature 2021-04-15 21:55:00 37 Malgorzata [facility] Respiratory rate 2021-04-15 21:55:00 16 /min [facility] Body height 2021-04-15 21:55:00 152.4 cm [facility] Body weight 2021-04-15 21:55:00 76.93 kg [facility] BMI 2021-04-15 21:55:00 33.12 kg/m2 [facility] Oxygen saturation in Arterial blood by Pulse oximetry 2021-04-15 21:55:00 98 /min [facility] Systolic blood pressure 2021-01-27 16:30:00 116 mm[Hg] [facility] Diastolic blood pressure 2021-01-27 16:30:00 84 mm[Hg] [facility] Heart rate 2021-01-27 16:30:00 85 /min [facility] Body temperature 2021-01-27 16:30:00 36.61 Malgorzata [facility] Respiratory rate 2021-01-27 16:30:00 18 /min [facility] Body height 2021-01-27 16:30:00 152.4 cm [facility] Body weight 2021-01-27 16:30:00 76.93 kg [facility] BMI 2021-01-27 16:30:00 33.12 kg/m2 [facility] Oxygen saturation in Arterial blood by Pulse oximetry 2021-01-27 16:30:00 98 /min [facility] Systolic blood pressure 2020-04-13 19:01:00 128 mm[Hg] [facility] Diastolic blood pressure 2020-04-13 19:01:00 81 mm[Hg] [facility] Heart rate 2020-04-13 19:01:00 71 /min [facility] Body temperature 2020-04-13 19:01:00 36.89 Malgorzata [facility] Respiratory rate 2020-04-13 19:01:00 16 /min [facility] Body height 2020-04-13 19:01:00 152.4 cm [facility] Body weight 2020-04-13 19:01:00 71.697 kg [facility] BMI 2020-04-13 19:01:00 30.87 kg/m2 [facility] Procedures Procedure Date / Time Performed Performing Clinicia n Source POCT MOLECULAR FLU 2023-08-11 18:45:00 Unknown, Attend ing [facility] POCT MOLECULAR STREP 2023-08-11 18:43:00 Unknown, [facility] POCT SARS-COV-2 ANTIGEN (BINAX NOW) 2023-08-11 18:43:00 Evelyn Castelan [facility] POCT SARS-COV-2 ANTIGEN (BINAX NOW) 2023-03-21 21:29:00 Kimberlee Santoyo [facility] POCT MOLECULAR FLU 2023-03-21 20:25:00 Unknown, Attend General acute hospital POCT MOLECULAR STREP 2023-03-21 20:20:00 Unknown, Atte [facility] POCT SARS-COV-2 ANTIGEN (BINAX NOW) 2022-12-14 18:38:00 Sugar Kramer [facility] POCT MOLECULAR STREP 2022-12-14 18:26:00 Unknown, Attsera [facility] POCT SARS-COV-2 ANTIGEN (BINAX NOW) 2022-07-21 15:27:00 Benedicto Zapien [facility] PATIENT FINANCIAL POLICY 2022-07-21 14:58:12 Doctor Unassigned, [place] [facility] POCT MOLECULAR FLU 2022-05-05 18:20:00 Unknown, Attend General acute hospital POCT MOLECULAR STREP 2022-05-05 18:17:00 Unknown, Attsera [facility] ASSIGNMENT OF BENEFITS 2022-05-05 17:47:31 Docto r Unassigned, [place] [facility] POCT SARS-COV-2 ANTIGEN (BINAX NOW) 2022-05-05 00:00:00 Benedicto Zapien [facility] POCT MOLECULAR FLU 2021-04-15 22:04:00 Ayana Walton [facility] POCT MOLECULAR STREP 2021-04-15 22:02:00 Debby Walton [facility] POCT GRP A STREP (MOLECULAR) 2021-01-27 16:45:00 Luna Franklin [facility] Encounters Start Date/Time End Date/Time Encounter Type Admission Type Attending [facility] Care Department Encounter ID Source 2023-07-11 00:00:00 2023-08-15 18:11:47 Patient Secure Msg Doctor Unassigned, [place] [facility] 1.114 350.1.13.10 4.2.7.2.686 [id number] [facility] 2023-08-11 13:00:00 2023-08-11 13:20:00 Urgent Care Evelyn Castelan Unknown, Attending [facility] 1.114 350.1.13.10 4.2.7.2.686 [id number] [facility] 2023-08-11 13:00:00 2023-08-11 13:00:00 Outpatient R EVELYN CASTELAN [facility] [id number] [facility] 2023-07-22 14:00:00 2023-07-22 14:39:08 Outpatient R YARELI BROWN [facility] [id number] [facility] 2023-07-22 14:00:00 2023-07-22 14:39:08 Office Visit Yareli Brown [facility] PROFESSIO NAL BUILDING 1.114 350.1.13.10 4.2.7.2.686 [id number] [facility] 2023-07-17 00:00:00 2023-07-17 00:00:00 Patient Secure Msg Georgia Parra [facility] MED[facility] OFF[facility] BUILD[facility] 1.114 350.1.13.10 4.2.7.2.686 [id number] [facility] 2023-07-07 11:00:00 2023-07-07 11:15:00 Licensed Mental Health Counselor Visit Lab, Georgia Winkler [facility] MED[facility] OFFICE BUILDING 1..114 350.1.13.10 4.2.7.2.686 [id number] [facility] 2023-07-07 10:40:00 2023-07-07 10:54:07 Outpatient R FIDEL GEORGIA [facility] [id number] [facility] 2023-07-07 10:40:00 2023-07-07 10:54:07 Office Visit Fidel Georgia M [facility] 1.840.114 350.1.13.10 4.2.7.2.686 [id number] [facility] 2023-06-29 16:00:00 2023-06-29 16:00:00 Outpatient R KIMBERLEE SANTOYO [facility] [id number] [facility] 2023-06-16 14:30:00 2023-06-16 14:30:00 Outpatient R SHERRIE CHADWICK [facility] [id number] [facility] 2023-03-21 14:00:00 2023-03-21 14:57:56 Outpatient R KIMBERLEE SANTOYO [facility] [id number] [facility] 2023-03-21 14:00:00 2023-03-21 14:57:56 Urgent Care Kimberlee Santoyo Unknown, Attending [facility] MEDICAL OFFICE BUILDING 1..840.114 350..13.10 4.2.7.2.686 [id number] [facility] 2022-12-14 13:20:00 2022-12-14 13:47:00 Outpatient R SUGAR KRAMER [facility] [id number] [facility] 2022-12-14 13:20:00 2022-12-14 13:47:00 Urgent Care Sugar Kramer Unknown, Attending [facility] MEDICAL OFFICE BUILDING 1..840.114 350.1.13.10 4.2.7.2.686 [id number] [facility] 2022-12-14 00:00:00 2022-12-14 00:00:00 Telephone Sugar Kramer [facility] MEDICAL OFFICE BUILDING 1.84.114 350.1.13.10 4.2.7.2.686 [id number] [facility] 2022-07-21 10:00:00 2022-07-21 10:20:00 Urgent Care Benedicto Zapien Unknown, Attending [facility] MED[facility] OFFICE BUILDING 1.84.114 350.1.13.10 4.2.7.2.686 [id number] [facility] 2022-07-21 10:00:00 2022-07-21 10:00:00 Outpatient R BENEDICTO ZAPIEN [facility] [id number] [facility] 2022-07-21 00:00:00 2022-07-21 00:00:00 Orders Only Doctor Unassigned, [place] [facility] 1.84.114 350.1.13.10 4.2.7.2.686 [id number] [facility] 2022-07-21 00:00:00 2022-07-21 00:00:00 Letter (Out) Benedicto Zapien [facility] MEDICAL OFFICE BUILDING 1.840.114 350.1.13.10 4.2.7.2.686 [id number] [facility] 2022-05-05 12:00:00 2022-05-05 12:28:42 Outpatient R BENEDICTO ZAPIEN [facility] [id number] [facility] 2022-05-05 12:00:00 2022-05-05 12:28:42 Urgent Care Benedicto Zapien, Attending [facility] MEDICAL OFFICE BUILDING 1.840.114 350.1.13.10 4.2.7.2.686 [id number] [facility] 2022-05-05 11:00:00 2022-05-05 11:00:00 Outpatient R UNKNOWN, ATTENDING [facility] [id number] [facility] 2022-05-05 09:20:00 2022-05-05 09:20:00 Outpatient R UNKNOWN, ATTENDING [facility] [id number] [facility] 2022-05-05 00:00:00 2022-05-05 00:00:00 Orders Only Doctor Unassigned, [place] [facility] 1.840.114 350.1.13.10 4.2.7.2.686 [id number] [facility] 2022-05-05 00:00:00 2022-05-05 00:00:00 Letter (Out) [facility] 1.840.114 350.1.13.10 4.2.7.2.686 [id number] [facility] 2022-04-12 15:00:00 2022-04-12 15:00:00 Outpatient R UNKNOWN, ATTENDING [facility] [id number] [facility] 2021-09-06 09:20:00 2021-09-06 09:20:00 Outpatient R HENNY WALLS [facility] [id number] [facility] 2021-06-23 00:00:00 2021-06-23 00:00:00 Refill Sherrie Chadwick [facility] SOAP WORKER [facility] 1.840.114 350.1.13.10 4.2.7.2.686 [id number] [facility] 2021-04-15 16:00:00 2021-04-15 16:18:30 Outpatient N BENEDICTO ZAPIEN [facility] [id number] [facility] 2021-04-15 16:00:00 2021-04-15 16:18:30 Urgent Care Benedicto Zapien Brittany [facility] MEDICAL OFFICE BUILDING 1.2.840.114 350.1.13.10 4.2.7.2.686 [id number] [facility] 2021-04-15 00:00:00 2021-04-15 00:00:00 Letter (Out) Jacqueline Hilario [facility] 1.2840.114 350.1.13.10 4.2.7.2.686 [id number] [facility] 2021-04-14 10:45:00 2021-04-14 11:25:54 Outpatient R [facility] [id number] [facility] 2021-04-14 10:45:00 2021-04-14 11:00:00 Laboratory Only Only, Ang Db Test [facility] MEDICAL OFFICE BUILDING 1.2.840.114 350.1.13.10 4.2.7.2.686 [id number] [facility] 2021-01-27 11:19:44 2021-01-27 12:06:51 Urgent Care Provider, Ang Db Urgent Care Fraciscomireya [facility] Medical Office Building 1.2.840.114 350.1.13.10 4.2.7.2.686 [id number] [facility] 2021-01-27 11:40:00 2021-01-27 11:40:00 Outpatient R RIGOBERTO [facility] [id number] [facility] 2021-01-27 00:00:00 2021-01-27 00:00:00 Telephone Violet Christopher [facility] 1.2.840.114 350.1.13.10 4.2.7.2.686 [id number] [facility] 2021-01-26 09:37:17 2021-01-26 09:52:17 Laboratory Only Only, Ang Db Test Evelyn Castelan [facility]?Ariella [facility] Medical Office Building 1.840.114 350.1.13.10 4.2.7.2.686 [id number] [facility] 2021-01-26 09:15:00 2021-01-26 09:15:00 Outpatient R EVELYN CASTELAN [facility] [id number] [facility] 2020-06-26 00:00:00 2020-06-26 00:00:00 Patient Outreach Jsoe Alonzo [facility] 1..840.114 350.1.13.10 4.2.7.2.686 [id number] [facility] 2020-05-04 00:00:00 2020-05-04 00:00:00 Refill Sherrie Chadwick [facility] SOAP WORKER [facility] CHILD [facility] ..840.114 350.1.13.10 4.2.7.2.686 [id number] [facility] 2020-04-18 00:00:00 2020-04-18 00:00:00 Telephone Sherrie Chadwick [facility] SOAP WORKER [facility] ..840.114 350.1.13.10 4.2.7.2.686 [id number] [facility] 2020-04-16 00:00:00 2020-04-16 00:00:00 Patient Secure Msg Doctor Unassigned, [place] [facility] 1..84.114 350.1.13.10 4.2.7.2.686 [id number] [facility] 2020-04-13 12:45:54 2020-04-13 14:20:32 Office Visit Sherrie Chadwick [facility] 1.2.840.114 350.1.13.10 4.2.7.2.686 [id number] [facility] 2020-04-13 12:45:00 2020-04-13 12:45:00 Outpatient R SHERRIE CHADWICK [facility] [id number] [facility] Results Test Description Test Time Test Comments Results Result Co mments Source [facility] Molecular [id number] 18:57:45* Test Item Value Reference Range Interpretation Comme nts POCT Molecular FluA (test co de = 90881-4) Negative Negative POCT Molecular FluB (test co de = 47228-8) Negative Negative Lab Interpretation (test cod e = 33015-2) Normal [facility] MOLECULAR [id number] 18:51:47* Test Item Value Reference Range Interpretation Comme nts POCT Molecular Strep (test c ode = 45823-8) Negative Negative Lab Interpretation (test cod e = 61397-4) Normal [facility] SARS-COV-2 ANTIGEN (BINAX NOW)2023-03-21 21:44:00* Test Item Value Reference Range Interpretation Comme nts POCT SARS-COV-2 ANTIGEN (christo t code = 92839-1) Not Detected Not Detected On board controls acceptable with C Line (test code = 3574) Yes Lab Interpretation (test cod e = 05885-2) Normal [facility] Molecular [id number] 20:37:37* Test Item Value Reference Range Interpretation Comme nts POCT Molecular FluA (test co de = 57449-1) Negative Negative POCT Molecular FluB (test co de = 50015-6) Negative Negative Lab Interpretation (test cod e = 19889-3) Normal [facility] MOLECULAR [id number] 20:28:53* Test Item Value Reference Range Interpretation Comme nts POCT Molecular Strep (test c ode = 57378-6) Negative Negative Lab Interpretation (test cod e = 24975-2) Normal [facility] SARS-COV-2 ANTIGEN (BINAX NOW)2022-12-14 18:38:00* Test Item Value Reference Range Interpretation Comme nts POCT SARS-COV-2 ANTIGEN (christo t code = 25663-1) Positive Not Detected A On board controls acceptable with C Line (test code = 3574) Yes Lab Interpretation (test cod e = 20119-0) Abnormal [facility] SARS-COV-2 ANTIGEN (BINAX NOW)2022-12-14 18:38:00* Test Item Value Reference Range Interpretation Comme nts POCT SARS-COV-2 ANTIGEN (christo t code = 33677-9) Positive Not Detected A On board controls acceptable with C Line (test code = 3574) Yes Lab Interpretation (test cod e = 37854-8) Abnormal [facility] SARS-COV-2 ANTIGEN (BINAX NOW)2022-12-14 18:38:00* Test Item Value Reference Range Interpretation Comme nts POCT SARS-COV-2 ANTIGEN (christo t code = 52241-9) Positive Not Detected A On board controls acceptable with C Line (test code = 3574) Yes Lab Interpretation (test cod e = 61702-4) Abnormal [facility] MOLECULAR [id number] 18:34:01* Test Item Value Reference Range Interpretation Comme nts POCT Molecular Strep (test c ode = 40018-0) Negative Negative Lab Interpretation (test cod e = 92876-5) Normal [facility] MOLECULAR [id number] 18:34:01* Test Item Value Reference Range Interpretation Comme nts POCT Molecular Strep (test c ode = 10024-1) Negative Negative Lab Interpretation (test cod e = 12906-9) Normal [facility] MOLECULAR [id number] 18:34:01* Test Item Value Reference Range Interpretation Comme nts POCT Molecular Strep (test c ode = 87910-8) Negative Negative Lab Interpretation (test cod e = 23540-2) Normal [facility] SARS-COV-2 ANTIGEN (BINAX NOW)2022-07-21 15:28:00* Test Item Value Reference Range Interpretation Comme nts POCT SARS-COV-2 ANTIGEN (christo t code = 96550-8) Not Detected Not Detected On board controls acceptable with C Line (test code = 3574) Yes [facility] MOLECULAR [id number] 18:32:13* Test Item Value Reference Range Interpretation Comme nts POCT Molecular FluA (test co de = 84865-3) Negative Negative POCT Molecular FluB (test co de = 94609-3) Negative Negative Lab Interpretation (test cod e = 80275-8) Normal [facility] MOLECULAR [id number] 18:24:51* Test Item Value Reference Range Interpretation Comme nts POCT Molecular Strep (test c ode = 36133-7) Negative Negative Lab Interpretation (test cod e = 18763-7) Normal [facility] SARS-COV-2 ANTIGEN (BINAX NOW)2022-05-05 18:19:00* Test Item Value Reference Range Interpretation Comme nts POCT SARS-COV-2 ANTIGEN (christo t code = 52851-4) Positive Not Detected A On board controls acceptable with C Line (test code = 3574) Yes Lab Interpretation (test cod e = 37821-4) Abnormal [facility] MOLECULAR [id number] 22:15:49* Test Item Value Reference Range Interpretation Comme nts POCT Molecular FluA (test co de = 01674-4) Negative Negative POCT Molecular FluB (test co de = 56866-0) Negative Negative Lab Interpretation (test cod e = 30048-7) Normal [facility] MOLECULAR [id number] 22:09:26* Test Item Value Reference Range Interpretation Comme nts POCT Molecular Strep (test c ode = 97245-0) Negative Negative Lab Interpretation (test cod e = 34447-5) Normal [facility] GRP A STREP (MOLECULAR)2021-01-27 16:45:00* Test Item Value Reference Range Interpretation Comme nts POCT GP A STREP (test code = 32027-8) Negative Negative - Negative [facility] Notes Date/Time Note Provider Source 2023-07-07 11:00:00 DrCrJGQP+3R79EfTFE8P XuWrR6uMZ6OlBks z9Eutia1w3JpCzcQGnWCk3wEoGiW73840-7 4-02T11:00:00 Images from the original note were not included.Venipuncture collection performed by clean technique on the right anticubitus. Total of 1 attempts were made. Slight pressure and a bandage/dressing were applied to the site(s). The patient experienced no complications. The following specimens were processed according to instructions and sent to [facility] laboratories per lab order on 07/07/2023 :LT BLUESST 1REDLAV 2PPTDK GREEN (LiHep)DK GREEN (SodH)GRAYDK BLUE (K2)DK BLUE (S)ACDBlood CultureNIPT/NTD 13694-2Sizlo JxmaTB4197-61-28V59:00:31Nurse NoteTXT1.2.840.529227.1.13.104.2.7. 2.803208|[id number] for patient cvxe37739-5Czggr NoteLNNARRATIVEFormatted C-CDA narrative textUT[address] Ri[id number] 5EIWOMOSRHLKYCVVIOMSVRM5925-66-63H5 1:00:311.2.840.148426.1.72.3.15|1.2 .840.828333.1.13.104.2.7.2.727879_2 [id number] [facility] 2022-12-14 14:12:23 cviJNVSLNjNFZjkZhOEe Mqz7G0zup0OKE4Y xAGtnx0PfUR5A8afTfCQGCqok0WU21534-1 4:12:23 Pharmacy changed pt was notified. 74437-2Mqedoblkl encounter WydwLG3298-70-29L04:13:43Telephone encounter NoteTXT1.2.840.853482.1.13.104.2.7. 2.550552|[id number] for patient gear07276-8PrelEXTGIGOAHL[address] Uc[id number] 0PEPDAVOENGRMPLZJJWIKHU6173-12-68L9 4:13:431.2.840.537499.1.72.3.15|1.2 .840.161905.1.13.104.2.7.2.727879_1 [id number] [facility] 2022-12-14 13:59:33 oXujhoOmGreWde5QiQ+T UcyAv38HL6clQ+f 86/p62ZCIk+IO8LplEy+theresa+9knHt4369-0 12-14T13:59:33 insulin dependent diabetes mellitusPt is requesting for medications to be resent to different pharmacy because current is closed.[id number] [place], [place] - [facility] [address] [place] [address] [address]Emuhf: [phone] Dryesdfwcvvcjm signed by Rosio Barcenas at 12/14/2022 2:01 PM WJL92331-5Yuqfgznko encounter YdrbCQ2525-12-69W44:01:17Telephone encounter NoteTXT1.2.840.720690.1.13.104.2.7. 2.566733|[id number] for patient [id number] M [address] Fn[id number] 3UYZVTNHPXYNCWDIJTTWPSK8725-69-79X7 4:01:171.2.840.234561.1.72.3.15|1.2 .840.010289.1.13.104.2.7.2.727879_1 [id number] Rosio Barcenas [facility]"
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
[2023-08-16 06:40] VITALS: BP 134/86; TEMP 98; O2SAT 99
--- NOTE | 2023-08-17 13:21 | EKG ---
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
--- NOTE | 2023-08-17 13:48 | RAD REPORT ---
EXAM DESCRIPTION: CT - Head C Spine Cap [facility] - 08/16/2023 6:54 am CLINICAL HISTORY: 23 years Female; TRAUMA; Bed Name: 20 TECHNIQUE: Noncontrast CT head and cervical spine. Contrast-enhanced CT of the chest, abdomen, pelvis. All CT scans at this facility use dose modulation, iterative reconstruction, and/or weight based dosi ng when appropriate to reduce radiation dose to as low as reasonably achievable. COMPARISON: CT head and CT cervical spine 01/28/2021. CT abdomen pelvis 10/21/2018. FINDINGS: BRAIN: Parenchyma: No acute hemorrhage, large territorial infarction, or mass effect. Ventricles and extra-axial spaces: Appropriate for age. Visualized paranasal sinuses: Clear. Mastoid air cells: Clear. Bones: No acute focal abnormality. Additional comment: None. CERVICAL SPINE: Alignment: There is loss of the normal lordosis, which may be related to patient positioning or muscl e spasm. Vertebrae: Vertebral bodies and posterior elements are intact without acute fracture. No significant degenerative change. Extra-vertebral soft tissues: Normal. Additional comment: None. CHEST: Lower neck/mediastinum: Heart size is normal. No mediastinal hematoma. No evidence of aortic intimal injury. No central filling defects within the main pulmonary arteries. Lungs/Airways/pleura: Central Airways are clear. No pneumothorax. No pleural effusion. No focal consolidation. Bones and soft tissues: No acute rib fracture. No acute thoracic spine fracture. Sternum is intact. Soft tissues are unremarkable. ABDOMEN/PELVIS: Abdomen: Stomach: Within normal limits Liver: No focal lesions. No intrahepatic ductal distention. Gallbladder: Nondistended Pancreas: Within normal limits Spleen: Within normal limits Right kidney: No hydronephrosis. No focal lesion. Left kidney: No hydronephrosis. No focal lesion. Adrenal glands: Within normal limits Vascular structures: Within normal limits Nodes: No lymphadenopathy by size criteria Pelvis: Small bowel: No significant distention. Appendix: Within normal limits Colon: No distention or acute pericolonic edema. Peritoneum: No free intraperitoneal fluid or air. Bones: No acute bone findings. Bladder: Unremarkable. Reproductive organs: No acute findings. IMPRESSION: 1. No acute intracranial findings. 2. No acute fracture or subluxation of the cervical spine. 3. No acute traumatic injury of the chest, abdomen, or pelvis. Electronically signed by: Charlie Gaspar MD 08/16/2023 06:00 AM CDT Due to temporary technical issues with the PACS/Fluency reporting system, reports are being signed by the in house radiologist without review as a courtesy to ensure prompt reporting. The interpreting r adiologist is fully responsible for the content of the report.
== END 2023-08-16 06:12 | disposition home or self-care (01) ==
LOC: ER 03:49
DX: M25.512 Pain in left shoulder (principal); M54.2 Cervicalgia; V47.5XXA Car driver injured in collision with fixed or stationary object in traffic accident, initial encounter
CPT/HCPCS: 93005; 70450; 72125; 71260; 74177; 99284; Q9967